=== PATIENT | female | born 1980 | race Caucasian/White ===

== ENCOUNTER → 2020-08-11 14:36 | Outpatient (CLI) | payer BC, SELFPAY | LOC: RESP 14:43 | PROVIDERS: Referring Provider Obstetrics & Gynecology; Visit Provider Obstetrics & Gynecology | DX: Z01.818 Encounter for other preprocedural examination (principal) | CPT/HCPCS: 93005; 93010 ==

== ENCOUNTER 2020-12-27 22:23 | Emergency (ER) | payer BC, SELFPAY ==
[2020-12-27 22:28] VITALS: BP 155/81; PULSE 84; RESP 17; O2SAT 99
[2020-12-27 22:29] VITALS: BP 155/71; PULSE 84; RESP 16; TEMP 36.9; O2SAT 97; BMI 33.2
[2020-12-27 22:30] VITALS: BP 156/83; PULSE 85; RESP 25; O2SAT 99
--- NOTE | 2020-12-27 22:31 | DI.RAD.S_ITS ---
PROCEDURE: XR CHEST 1V INDICATIONS: chest pain TECHNIQUE: One view of the chest was acquired. COMPARISON: None. FINDINGS: Surgical changes and devices: None. Lungs and pleura: Lungs are clear. No pleural effusions or pneumothorax. Mediastinum: Mediastinal contours appear normal. Heart size is normal. Bones and chest wall: No suspicious bony lesions. Overlying soft tissues appear unremarkable. IMPRESSION: No acute cardiopulmonary abnormality. Dictated by: Elieser Khanna M.D. on 12/27/2020 at 22:56 Approved by: Elieser Khanna M.D. on 12/27/2020 at 22:56
[2020-12-27 22:47] LABS: Add Manual Diff / Slide Review NO; Basophils Absolute Auto 100 /uL (0-100); Basophils Percent Auto 0.5 % (0-2); Eosinophils Absolute Auto 200 /uL (0-450); Eosinophils Percent Auto 1.8 % (2-4); Hemoglobin 13.4 g/dL (12.0-16.0); Lymphocytes Absolute Auto 2500 /uL (1100-4500); Lymphocytes Percent Auto 26.2 % (25-40); Mean Corpuscular HGB Conc 33.5 % (30-36); Mean Corpuscular Hemoglobin 31.6 PG (26-34); Mean Corpuscular Volume 94.3 fL (80-100); Monocytes Absolute Auto 900 /uL (0-900); Monocytes Percent Auto 9.4 % (3-14); Neutrophils Absolute Auto 5800 /uL (1500-7000); Neutrophils Percent Auto 62.1 % (50-75); Platelet Count 295 X10^3/uL (150-400); Red Blood Cell Count 4.24 X10^6/uL (4.0-5.2); Red Cell Distribution Width 12.1 % (11.6-14.8); White Blood Cell Count 9.4 X10^3/uL (4.5-11.0)
[2020-12-27 22:55] LABS: Alanine Aminotransferase 45 IU/L (<35); Albumin 4.5 g/dL (3.5-5.0); Albumin Globulin Ratio 1.7 (1.0-2.8); Alkaline Phosphatase 43 U/L (38-126); Aspartate Aminotransferase 30 IU/L (14-36); BUN Creatinine Ratio 19.7 (6-22); Bilirubin Total 0.3 mg/dL (0.2-1.3); Blood Urea Nitrogen 14 mg/dL (7-17); Calcium 9.3 mg/dL (8.4-10.2); Carbon Dioxide 27 mmol/L (22-32); Chloride 107 mmol/L (98-107); Creatine Kinase 86 U/L (30-135); Estimated Glomerular Filt Rate > 60.0 mL/min (>60); Globulin 2.6 g/dL (1.7-4.1); Glucose 95 mg/dL (70-100); HEMOLYSIS < 15 (0-50); Lipase 112 U/L (23-300); Potassium 3.6 mmol/L (3.4-5.1); Sodium 139 mmol/L (137-145); Total Protein 7.1 g/dL (6.3-8.2)
[2020-12-27 23:07] LABS: Troponin I < 0.012 ng/mL (0.01-0.034)
--- NOTE | 2020-12-27 23:25 | ED.CHESTPAIN ---
HPI - Chest Pain General Chief Complaint: Chest Pain Stated Complaint: chest pains,heart palpitations, taking breath away Time Seen by Provider: 12/27/20 22:38 History of Present Illness HPI narrative: Patient is a 40-year-old female who presents with heart palpitations. She says she has had multiple palpitations today. They last anywhere from 20-30 seconds. Some of them are quite painful which brought her to the ED today. She denies any cough or fever. No shortness of breath no nausea or vomiting. Although when she does have when these episodes she does feel a bit nauseous and short of breath. She does admit to drinking alcohol but she says she does not drink excessively she only had a couple of drinks last night socially. She talked to her primary care physician office today and they told her to take aspirin which she did. Review of Systems Review of Systems Narrative: GENERAL: Denies chills, fatigue, malaise, fever, sweats, travel HEENT: Denies sinus pain, ear pain, sore throat, difficulty swallowing, neck pain RESPIRATORY: Denies dyspnea, cough, wheezing, hemoptysis, sputum. CARDIOVASCULAR: See HPI GASTROINTESTINAL: Denies nausea, vomiting, abdominal pain, diarrhea, constipation, melena. : Denies dysuria, frequency, incontinence, hematuria, urinary retention, flank pain. MUSCULOSKELETAL: Denies weakness, joint pain, or bony pain SKIN: No rash, no erythema, no pruritus NEUROLOGIC: Denies weakness, dizziness, headache, numbness, change in speech, confusion PSYCHIATRIC: No concerning psychosocial issues. 12 point review of systems is negative except for those stated above and HPI Patient History Social History Smoking Status: Current every day smoker Smoking Status: Current every day smoker tobacco type: cigarettes alcohol intake frequency: a few times a week Alcohol type: beer and hard liquor Substance Use Type: does not use Exam Initial Vital Signs Initial Vital Signs: Vital Signs Temperature 98.5 F 12/27/20 22:29 Pulse Rate 84 12/27/20 22:29 Respiratory Rate 16 12/27/20 22:29 Blood Pressure 155/71 H 12/27/20 22:29 Pulse Oximetry 97 12/27/20 22:29 GENERAL: Alert well-appearing 32-year-old female and in no acute] distress. HEENT: Head atraumatic,EOMI, pupils reactive, face symmetric,mois mucous membranes CARDIOVASCULAR: Regular rate and rhythm without murmurs, rubs or gallops. RESPIRATORY: Breath sounds equal bilaterally, no wheezes rales or rhonchi. ABDOMEN: Soft, nontender. Normoactive bowel sounds all 4 quadrants. No guarding or rebound. EXTREMITIES: Normal range of motion, no clubbing or edema. Neurovascularly intact NEUROLOGICAL: Alert and oriented x4.Normal gait and speech. SKIN: Warm, dry, no laceration, no petechiae, no rashes or lesions. Scores HEART Score Heart Score history: Slightly Suspicious Heart Score EKG: Normal Heart Score Age: < 45 years old Heart Score risk factors: No known risk factors Heart Score troponin: < or = to normal limit Heart Score Total: 0 PERC Score Age greater than or equal to 50 years: No Heart rate greater than or equal to 100 bpm: No Room Air O2 Sat less than 95%: No Unilateral leg swelling: No Recent trauma or surgery: No Hemoptysis: No Prior PE or DVT: No Hormone Use: No Total PERC Score: 0 Course Orders Ordered: ED Orders 12/27/20 22:31 XR chest 1V Stat EKG-12 Lead Stat 12/27/20 22:38 Complete Blood Count AUTO DIFF Stat Comprehensive Metabolic Panel Stat Lipase Stat Troponin & CK Cardiac Panel Stat Vital Signs Vital signs: Vital Signs - 8 hr 12/27/20 22:29 Temperature 98.5 F Pulse Rate 84 Respiratory Rate 16 Blood Pressure 155/71 H Pulse Oximetry 97 MDM - Chest Pain Lab Data Result diagrams: 12/27/20 22:38 12/27/20 22:38 Labs: Lab Results 12/27/20 12/27/20 Range/Units 22:38 22:38 WBC 9.4 (4.5-11.0) X10^3/uL RBC 4.24 (4.0-5.2) X10^6/uL Hgb 13.4 (12.0-16.0) g/dL Hct 40.0 (36-46) % MCV 94.3 (80-100) fL MCH 31.6 (26-34) PG MCHC 33.5 (30-36) % RDW 12.1 (11.6-14.8) % Plt Count 295 (150-400) X10^3/uL Neut % (Auto) 62.1 (50-75) % Lymph % (Auto) 26.2 (25-40) % Burke % (Auto) 9.4 (3-14) % Eos % (Auto) 1.8 L (2-4) % Baso % (Auto) 0.5 (0-2) % Neut # (Auto) 5800 (9828-2724) /uL Lymph # (Auto) 2500 (0774-9451) /uL Burke # (Auto) 900 (0-900) /uL Eos # (Auto) 200 (0-450) /uL Baso # (Auto) 100 (0-100) /uL Sodium 139 (137-145) mmol/L Potassium 3.6 (3.4-5.1) mmol/L Chloride 107 (98-107) mmol/L Carbon Dioxide 27 (22-32) mmol/L BUN 14 (7-17) mg/dL Creatinine 0.71 (0.52-1.04) mg/dL Estimated GFR > 60.0 (>60) mL/min BUN/Creatinine Ratio 19.7 (6-22) Glucose 95 (70-100) mg/dL Calcium 9.3 (8.4-10.2) mg/dL Total Bilirubin 0.3 (0.2-1.3) mg/dL AST 30 (14-36) IU/L ALT 45 H (<35) IU/L Alkaline Phosphatase 43 (38-126) U/L Total Creatine Kinase 86 (30-135) U/L CK-MB (CK-2) TNP CK-MB (CK-2) Rel Index TNP Troponin I < 0.012 (0.01-0.034) ng/mL Total Protein 7.1 (6.3-8.2) g/dL Albumin 4.5 (3.5-5.0) g/dL Globulin 2.6 (1.7-4.1) g/dL Albumin/Globulin Ratio 1.7 (1.0-2.8) Lipase 112 (23-300) U/L Imaging Data Chest x-ray: Radiologist's Impression: PROCEDURE:? XR CHEST 1V ? INDICATIONS:? chest pain ? TECHNIQUE:? One view of the chest was acquired.? ? COMPARISON:? None. ? FINDINGS:? ? Surgical changes and devices:? None.? ? Lungs and pleura:? Lungs are clear.? No pleural effusions or pneumothorax.? ? Mediastinum:? Mediastinal contours appear normal.? Heart size is normal.? ? Bones and chest wall:? No suspicious bony lesions.? Overlying soft tissues appear unremarkable.? ? IMPRESSION:? No acute cardiopulmonary abnormality. ? ? Dictated by: Elieser Khanna M.D. on 12/27/2020 at 22:56 ? ? ECG Data Interpretation: Normal sinus rhythm rate 79 MO interval 182 QRS [address] changes no T-wave inversions MDM Narrative Medical decision making narrative: Patient has been on the monitor without any PVC or abnormality. Her primary is setting her up with a Holter monitor. At this time blood work is overall reassuring. She is not short of breath. Some to the she is really having some sort of a 50 a which does not last long. While at rest she is not short of breath she is not tachycardic Discharge Plan Departure Patient Disposition: Home Clinical Impression: Heart palpitations Instructions: Arrhythmias Activity Restrictions/Additional Instructions: *You have been diagnosed with palpitations *What to do: At this time follow up with primary care provider and get a Holter monitor. Blood work is overall reassuring x-ray does not show any abnormality. Increase fluid intake as tolerated recommend avoiding alcohol at this time. *Continue to take medications as directed *Follow up with your primary care provider in 2-3 days *Return to ER if you should have increasing palpitations dizziness lightheadedness or chest pain or any new, worsening or concerning symptoms
[2020-12-27 23:30] VITALS: PULSE 71; RESP 22; O2SAT 98
== END 2020-12-27 23:38 | disposition home or self-care (01) ==
PROVIDERS: Emergency Provider Emergency Medicine
DX: R00.2 Palpitations (principal); R07.9 Chest pain, unspecified
CPT/HCPCS: 36415; 71045; 80053; 82550; 83690; 84484; 85025; 93005; 99284

== ENCOUNTER → 2021-02-02 08:48 | Outpatient (CLI) | payer BC, SELFPAY ==
--- NOTE | 2021-02-02 | DI.ECHO.S_ITS ---
[facility] +---------+ : : [address] : : : : [id number] : : : : Phone: [phone] Echocardiogram Report + + :Name: EREN TIM Study Date: 02/02/2021 Height: 60 in : :[facility] ReadingLocation: Weight: 165 lb : : Gender: Female BSA: 1.7 m2 : :: 1980 Age: 40 yrs BP: 133/89 mmHg: :Reason For Study: TACHYCARDIA : :Ordering Physician: TISH, : :CINDY Khan Performed By: Rhonda Hernández : :Referring: CINDY WINSTON : + + Interpretation Summary The ejection fraction is estimated to be 55-60%. Diastolic parameters suggest probable normal left ventricular diastolic function and normal filling pressures. The right ventricle is normal in size and function. No significant valvular abnormalities. Unable to estimate PASP. Procedure: A two-dimensional transthoracic echocardiogram with color flow and Doppler was performed. The study quality was technically adequate. There is no prior echocardiogram noted for this patient. The patient was in sinus rhythm with heart rates between 55-67 bpm during the exam. Left Ventricle: The left ventricle is normal in size and wall thickness. The ejection fraction is estimated to be 55-60%. There is a mild dyssynchronous contraction pattern, consistent with a conduction abnormality. Diastolic parameters suggest probable normal left ventricular diastolic function and normal filling pressures. Right Ventricle: The right ventricle is normal in size and function. Atria: The left atrial size is normal. Right atrial size is normal. There is no Doppler evidence for an interatrial shunt. Mitral Valve: The mitral valve is normal in structure and function. There is trace mitral regurgitation. Aortic Valve: The aortic valve is trileaflet. The aortic valve opens well. There is no aortic valve stenosis. No aortic regurgitation is present. Tricuspid Valve: The tricuspid valve is normal in structure and function. There is a trace or physiologic amount of tricuspid regurgitation. Pulmonary artery pressures cannot be estimated because of the lack of a measurable TR jet velocity but the IVC suggests a CVP of around 3 mmHg. Pulmonic Valve: The pulmonic valve is not well seen, but is grossly normal. There is no pulmonic valvular regurgitation. Great Vessels: The aortic root is normal size. The dimensions of the ascending aorta are normal. The IVC is of normal diameter and collapses greater than 50% with a sniff. This suggests a low right atrial pressure of 3 mm Hg. Pericardium/ Pleura There is no pericardial effusion. There is no pleural effusion. MMode/2D Measurements & Calculations LVIDd: 4.6 cm LVOT diam: 2.1 cm LVIDs: 3.0 cm Ao root diam: 2.6 cm FS: 34.1 % asc Aorta Diam: 2.5 cm IVSd: 0.57 cm Ao Arch Diam (Prox Trans): 2.2 cm LVPWd: 0.81 cm LV calhoun. diameter/BSA (cm/m^2): 2.7 LV sys. diameter/BSA (cm/m^2): 1.8 LA A2 area: 14.2 cm2 RA long axis: 4.1 cm LA A4 area: 12.7 cm2 RA area: 9.8 cm2 LA length (vol): 4.6 cm RA vol: 20.0 ml LA vol: 33.4 ml RA : 11.6 ml/m2 LA vol index: 19.4 ml/m2 IVC diam: 0.97 cm RVD1 (basal): 2.9 cm RVD2 (mid): 2.3 cm TAPSE: 2.5 cm Doppler Measurements & Calculations Ao V2 max: 119.0 cm/sec LVOT Max Ramesh: 76.9 cm/sec Ao V2 mean: 83.5 cm/sec LV V1 max P.4 mmHg Ao max P.7 mmHg LV V1 VTI: 15.5 cm Ao mean P.1 mmHg LOVE(I,D): 2.0 cm2 Ao V2 VTI: 26.7 cm LOVE(V,D): 2.2 cm2 sev ratio: 0.58 LOVE indexed to BSA (cm^2/m^2): 1.2 MV E max ramesh: 74.7 cm/sec PA V2 max: 83.5 cm/sec MV A max ramesh: 35.4 cm/sec PA V2 mean: 57.8 cm/sec MV E/A: 2.1 PA mean P.5 mmHg Med Peak E' Ramesh: 12.5 cm/sec PA pr(Accel): 25.9 mmHg E/E' med: 6.0 Lat Peak E' Ramesh: 15.4 cm/sec E/E' lat: 4.9 E/e' average: 5.4 MV dec time: 0.23 sec [facility] 53.7 ml Reading Physician:12:21 PM
== END ==
PROVIDERS: PCP Obstetrics & Gynecology; Referring Provider Obstetrics & Gynecology; Visit Provider Obstetrics & Gynecology
DX: R00.0 Tachycardia, unspecified (principal)
CPT/HCPCS: 93306